=== PATIENT | female | born 1975 | race Caucasian/White ===

== ENCOUNTER 2021-12-06 00:14 | Emergency (ER) | payer MEDICAID ==
[~2021-12-06] VITALS: Ht 162.6 cm; Wt 68.0 kg
[2021-12-06 00:18] VITALS: BP 132/80
[2021-12-06] MEDS ORDERED: PSEUDOEPHEDRINE HCL 30MG TABLET PO STA (00:25)
== END 2021-12-06 03:32 | disposition left against medical advice (07) ==
LOC: ER 00:36
DX: J06.9 Acute upper respiratory infection, unspecified (principal); I10 Essential (primary) hypertension
CPT/HCPCS: 71045; 99283

== ENCOUNTER 2023-12-19 19:16 | Emergency (ER) | payer MEDICAID, OTHER ==
[2023-12-19 19:32] VITALS: PULSE 98; O2SAT 100
== END 2023-12-19 21:11 | disposition left against medical advice (07) ==
LOC: ER 19:16
DX: M25.532 Pain in left wrist (principal); Z53.21 Procedure and treatment not carried out due to patient leaving prior to being seen by health care provider